=== PATIENT | female | born 1995 | race African-American/Black ===

== ENCOUNTER 2017-05-08 18:24 | Emergency (ER) | payer MEDICAID ==
[~2017-05-08] VITALS: Ht 165.1 cm; Wt 80.0 kg
[2017-05-08 18:25] VITALS: BP 125/81; PULSE 78; RESP 16; TEMP 98.9; O2SAT 100
--- NOTE | 2017-05-08 18:52 | PD ---
HPI Chief Complaint: Abdominal Pain Time Seen by Provider: 18:42 Travel History International Travel<30 days: No Contact w/Intl Traveler<30days: No Traveled to known affect area: No History of Present Illness HPI c/o 2 day h/o suprapubic spasm, occasionally, 01/25 then resolves...denies any diarrhea/fever/back pain.... PFSH Past Medical History Weight (Kg): 3 Cardiovascular Problems: No Developmental Delay: No Diabetes: No Diminished Hearing: No Headaches: No Psychiatric: Yes (Bipolar disorder, ODD) Immunizations Current: Yes Seizures: No ?: Unknown LMP: 03/2017 : 1 Para: 0 Miscarriage: 0 : 0 Past Surgical History Other Surgery: No Social History Alcohol Use: Yes (OCC) Tobacco Use: Yes Substance Use: No Allergies-Medications (Allergen,Severity, Reaction): Coded Allergies: No Known Allergies (Verified Adverse Reaction, Unknown, 05/08/17) Reported Meds & Prescriptions Reported Meds & Active Scripts Active No Active Prescriptions or Reported Medications Review of Systems Except as stated in HPI: all other systems reviewed are Neg General / Constitutional: No: Fever Eyes: No: Visual changes HENT: No: Headaches Cardiovascular: No: Chest Pain or Discomfort Respiratory: No: Shortness of Breath Gastrointestinal: No: Abdominal Pain Genitourinary: Positive: Frequency, Dysuria Musculoskeletal: No: Pain Skin: No Rash Neurologic: No: Weakness Psychiatric: No: Depression Endocrine: No: Polydipsia Hematologic/Lymphatic: No: Easy Bruising Physical Exam Narrative GENERAL: SKIN: Warm and dry. HEAD: Atraumatic. Normocephalic. EYES: Pupils equal and round. No scleral icterus. No injection or drainage. ENT: No nasal bleeding or discharge. Mucous membranes pink and moist. NECK: Trachea midline. No JVD. CARDIOVASCULAR: Regular rate and rhythm. RESPIRATORY: No accessory muscle use. Clear to auscultation. Breath sounds equal bilaterally. GASTROINTESTINAL: Abdomen soft, non-tender, nondistended. MUSCULOSKELETAL: Extremities without clubbing, cyanosis, or edema. No obvious deformities. NEUROLOGICAL: Awake and alert. No obvious cranial nerve deficits. Motor grossly within normal limits. Five out of 5 muscle strength in the arms and legs. Normal speech. PSYCHIATRIC: Appropriate mood and affect; insight and judgment normal. Data Data Last Documented VS Vital Signs Date Time Temp Pulse Resp B/P (MAP) Pulse Ox O2 Delivery O2 Flow Rate FiO2 05/08/17 18:25 98.9 78 16 125/81 (96) 100 Room Air Orders Orders Urinalysis - C+S If Indicated (05/08/17 18:52) Ct Abd/Pel W/O Iv Contrast (05/08/17 18:52) Ed Urine Pregnancytest Poc (05/08/17 18:52) Labs Laboratory Tests Test 05/08/17 19:15 Urine Color YELLOW Urine Turbidity CLEAR Urine pH 6.5 Urine Specific [place] 1.023 Urine Protein NEG mg/dL Urine Glucose (UA) NEG mg/dL Urine Ketones NEG mg/dL Urine Occult Blood NEG Urine Nitrite NEG Urine Bilirubin NEG Urine Urobilinogen LESS THAN 2.0 MG/DL Urine Leukocyte Esterase SMALL Urine RBC 2 /hpf Urine WBC 8 /hpf Urine Squamous Epithelial Cells 3 /hpf Urine Mucus FEW /lpf Microscopic Urinalysis Comment CULT NOT INDICATED MDM Medical Decision Making Medical Screen Exam Complete: Yes Emergency Medical Condition: Yes Medical Record Reviewed: Yes Differential Diagnosis appy v preg related v uti v colitis v divertic Narrative Course ct neg for colitis/appy/divertic....neg . Diagnosis Primary Impression: uti Patient Instructions: General Instructions, Urinary Tract Infection in Women ( ED) Scripts Nitrofurantoin Monohydrate Macrocrystals (Macrobid) 100 Mg Capsule 100 MG PO BID for Infection, #10 CAP 0 Refills Prov: Ivan Smiley MD 05/08/17 Disposition: 01 DISCHARGE HOME Condition: Stable Ivan Smiley MD May 08, 2017 18:52
[2017-05-08 19:43] LABS: BLOOD, URINE NEG (NEG); COMMENT (UR) CULT NOT INDICATED; CULTURE IF INDICATED CULT NOT INDICATED; GLUCOSE,URINE NEG (NEG); KETONE, URINE NEG (NEG); MUCUS URINE FEW /lpf (OCC); NITRITE,URINE NEG (NEG); PH, URINE 6.5 (5.0-8.5); SQUAMOUS EPITHELIAL CELL URINE 3 /hpf (0-5); URINE COLOR YELLOW (YELLW/STRAW)
[2017-05-08] MEDS ORDERED: MACR100C2 PO (19:57)
--- NOTE | 2017-05-08 20:58 | RADRPT ---
EXAM DATE/TIME: 05/08/2017 19:46 [facility] COMPARISON: No previous studies available for comparison. INDICATIONS : Lower abdomen pain with dysuria. ORAL CONTRAST: No oral contrast ingested. RADIATION DOSE: 10.63 CTDIvol (mGy) MEDICAL HISTORY : None SURGICAL HISTORY : None. ENCOUNTER: Initial ACUITY: 2 days PAIN SCALE: 8/10 LOCATION: Bilateral lower quadrant TECHNIQUE: Volumetric scanning of the abdomen and pelvis was performed. Using automated exposure control and ad justment of the mA and/or kV according to patient size, radiation dose was kept as low as reasonably achievable to obtain optimal diagnostic quality images. DICOM format image data is available electro nically for review and comparison. FINDINGS: LOWER LUNGS: The visualized lower lungs are clear. LIVER: Homogeneous density without lesion. There is no dilation of the biliary tree. No calcified gallston es. SPLEEN: Normal size without lesion. PANCREAS: Within normal limits. KIDNEYS: Normal in size and shape. There is no mass, stone, or hydronephrosis. ADRENAL GLANDS: Within normal limits. VASCULAR: There is no aortic aneurysm. BOWEL/MESENTERY: The stomach, small bowel, and colon demonstrate no acute abnormality. There is no free intraperitone al air or fluid. The appendix is normal by CT criteria. ABDOMINAL WALL: Within normal limits. RETROPERITONEUM: There is no lymphadenopathy. BLADDER: No wall thickening or mass. REPRODUCTIVE: Within normal limits. INGUINAL: There is no lymphadenopathy or hernia. MUSCULOSKELETAL: Within normal limits for patient age. CONCLUSION: Normal examination. Issa Barajas Jr., MD on May 08, 2017 at 20:06 Board Certified Radiologist. This report was verified electronically.
== END 2017-05-08 20:28 | disposition home or self-care (01) ==
LOC: NEPD 18:24
DX: N39.0 Urinary tract infection, site not specified (principal); F31.9 Bipolar disorder, unspecified; F91.3 Oppositional defiant disorder; Z72.0 Tobacco use
CPT/HCPCS: 74176; 81001; 84703

== ENCOUNTER 2017-07-12 20:14 | Emergency (ER) | payer MEDICAID ==
[~2017-07-12] VITALS: Ht 165.1 cm; Wt 75.0 kg
[~2017-07-12 20:14] MED LIST: MACR100C2 PO
[2017-07-12 20:17] VITALS: BP 143/76; PULSE 68; RESP 16; TEMP 98.6; O2SAT 100
[2017-07-12 22:17] LABS: BACTERIA, URINE OCC /hpf; BILIRUBIN, URINE NEG (NEG); BLOOD, URINE NEG (NEG); GLUCOSE,URINE NEG (NEG); KETONE, URINE 10 mg/dL (NEG); MUCUS URINE MOD /lpf (OCC); NITRITE,URINE NEG (NEG); SQUAMOUS EPITHELIAL CELL URINE 4 /hpf (0-5); URINE COLOR YELLOW (YELLW/STRAW); URINE LEUKOCYTE ESTERASE LARGE (NEG)
--- NOTE | 2017-07-12 22:19 | PD ---
HPI . 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 LMP 06/18/17. She also complains of urinary frequency and urgency but no burning. She denies any vaginal discharge odor or color other than previous described. She denies any bleeding. She has had 1 partner in the last 6 months. Prior history of chlamydia treated early in 2017. PFSH Past Medical History Weight (Kg): 3 Cardiovascular Problems: No Developmental Delay: No Diabetes: No Diminished Hearing: No Headaches: No Psychiatric: Yes (Bipolar disorder, ODD) Immunizations Current: Yes Seizures: No Tetanus Vaccination: < 5 Years Influenza Vaccination: No ?: Unknown : 1 Para: 0 Miscarriage: 0 : 0 Past Surgical History Other Surgery: No Social History Alcohol Use: Yes (OCC) Tobacco Use: Yes Substance Use: No Allergies-Medications (Allergen,Severity, Reaction): Coded Allergies: No Known Allergies (Verified Adverse Reaction, Unknown, 07/12/17) Reported Meds & Prescriptions Reported Meds & Active Scripts Active Macrobid (Nitrofurantoin Monohydrate Macrocrystals) 100 Mg Capsule 100 Mg PO BID Review of Systems Genitourinary: Positive: Urgency, Frequency, Pelvic Pain, Dyspareunia, Discharge, No: Dysuria, Flank Pain, Vaginal Bleeding Physical Exam Narrative GENERAL: young female sitting in bed in no acute distress SKIN: Warm and dry. HEAD: Normocephalic. EYES: No scleral icterus. No injection or drainage. NECK: Supple, trachea midline. No JVD or lymphadenopathy. CARDIOVASCULAR: Regular rate and rhythm without murmurs, gallops, or rubs. RESPIRATORY: Breath sounds equal bilaterally. No accessory muscle use. GASTROINTESTINAL: Abdomen soft, non-tender, nondistended. PELVIC: Normal external genitalia. White thin discharge present in the vaginal vault. Cervix was visualized with white discharge extruding from the os. No cervical motion tenderness. Adnexa non-tender. MUSCULOSKELETAL: No cyanosis, or edema. BACK: Nontender without obvious deformity. No CVA tenderness. Data Data Last Documented VS Vital Signs Date Time Temp Pulse Resp B/P (MAP) Pulse Ox O2 Delivery O2 Flow Rate FiO2 07/12/17 20:17 98.6 68 16 143/76 (98) 100 Room Air Orders Orders Gc And Chlamydia Pcr (07/12/17 21:13) Wet Prep Profile (07/12/17 21:13) Urinalysis - C+S If Indicated (07/12/17 21:13) Ed Urine Pregnancytest Poc (07/12/17 21:13) Urine Culture (07/12/17 21:21) Ceftriaxone Inj (Rocephin Inj) (07/12/17 22:30) Lidocaine 1% Inj (50 Ml) (Xylocaine 1% I (07/12/17 22:30) Metronidazole (Flagyl) (07/12/17 22:30) Azithromycin (Zithromax) (07/12/17 22:30) Labs Laboratory Tests Test 07/12/17 21:21 Urine Color YELLOW Urine Turbidity HAZY Urine pH 6.0 Urine Specific [place] 1.029 Urine Protein TRACE mg/dL Urine Glucose (UA) NEG mg/dL Urine Ketones 10 mg/dL Urine Occult Blood NEG Urine Nitrite NEG Urine Bilirubin NEG Urine Urobilinogen 2.0 MG/DL Urine Leukocyte Esterase LARGE Urine RBC 23 /hpf Urine WBC 100 /hpf Urine Squamous Epithelial Cells 4 /hpf Urine Bacteria OCC /hpf Urine Mucus MOD /lpf Microscopic Urinalysis Comment CULTURE INDICATED Clue Cells (Wet Prep) NONE SEEN Vaginal Trichomonas (Wet Prep) PRESENT Vaginal Yeast (Wet Prep) NONE SEEN MDM Medical Decision Making Medical Screen Exam Complete: Yes Emergency Medical Condition: Yes Differential Diagnosis Urinary tract infection, cervicitis, PID, pyelonephritis Narrative Course Patient presented with cc of vaginal discharge, pelvic pressure. A urine test was negative. Pelvic exam revealed thin white discharge. Diagnosis Primary Impression: Trichomoniasis Additional Impression: UTI (urinary tract infection) Qualified Codes: N39.0 - Urinary tract infection, site not specified Referrals: [facility] Dept. 2 days Disposition: DISCHARGE HOME Condition: Stable Nico Mccarthy MD Jul 12, 2017 22:19
[2017-07-12] MEDS ORDERED: metroNIDAZOLE 500 MG TAB PO ONE (22:30)
[2017-07-12] MEDS ORDERED: LIDOCAINE HCL 1% 50 ML VIAL IM ONE (22:30)
[2017-07-12] MEDS ORDERED: cefTRIAXone 250 MG VIAL IM ONE (22:30)
[2017-07-12] MEDS ORDERED: AZITHROMYCIN 250 MG TAB PO ONE (22:30)
== END 2017-07-12 23:03 | disposition home or self-care (01) ==
LOC: NEPD 20:14
DX: A59.9 Trichomoniasis, unspecified (principal); N39.0 Urinary tract infection, site not specified; F31.9 Bipolar disorder, unspecified
CPT/HCPCS: 81001; 84703; 87086; 87210; 87491; 87591; 96372; 99284; J0696